=== PATIENT | female | born 1975 | race Caucasian/White ===

== ENCOUNTER 2018-07-21 16:09 | Emergency (ER) | payer OTHER ==
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
[2018-07-21 18:16] VITALS: BP 152/101
--- NOTE | 2018-07-24 09:44 | UC ---
- Progress Note Progress Note: Urine culture report reviewed Preliminary results: Escherichia coli 50,000-75,000 CFU/mL Patient is on Keflex, with final culture results No change in plan Course/Dx - Diagnoses Provider Diagnoses: UTI (urinary tract infection) Discharge - Sign-Out/Discharge Documenting (check all that apply): Post-Discharge Follow Up All imaging exams completed and their final reports reviewed: No Studies - Discharge Plan Condition: Good Disposition: HOME Prescriptions: Cephalexin CAP* [Keflex CAP*] 500 mg PO BID #10 cap Patient Education Materials: Urinary Tract Infection in Women (ED) Referrals: Yenni Flores PA [Primary Care Provider] - Additional Instructions: Your blood pressure is elevated today; please ensure that you have a follow up check of blood pressure within 2 weeks. Urine culture will be sent, and you will be notified if a change of antibiotics is needed. You can continue use of uristat for the next several days. Ensure a high intake of water. - Billing Disposition and Condition Condition: GOOD Disposition: Home
== END 2018-07-21 18:42 | disposition home or self-care (01) ==
LOC: UCCORT 16:09
DX: N39.0 Urinary tract infection, site not specified (principal); I10 Essential (primary) hypertension; F43.10 Post-traumatic stress disorder, unspecified; F17.210 Nicotine dependence, cigarettes, uncomplicated
CPT/HCPCS: 81003; 87077; 87086; 87186; 99202; G0463